=== PATIENT | male | born 1950 | race Caucasian/White ===

== ENCOUNTER → 2019-07-23 | Outpatient (CLI) | payer MEDICARE, OTHER ==
[~2019-07-23] MED LIST: COSAMIN ASU CA1 EACH PO; FINASTERIDE PO; Lortab PO; MULTI-VITAMIN1 EACH PO; NAPROXEN; TAMSULOSIN HCL0.4 MG PO; VITAMIN D
--- NOTE | 2019-07-23 09:12 | Diagnostic Imaging Report ---
EXAMINATION: KNEE LEFT THREE VIEWS INDICATION: Left knee pain COMPARISON: None FINDINGS: No acute fracture or dislocation. Alignment is anatomic. Moderate patellofemoral compartment predominant IMPRESSION: No acute osseous injury. Moderate patellofemoral compartment predominant tricompartmental degenerative changes. Moderate suprapatellar joint effusion. Signed by: Jay Tao MD on 07/23/2019 9:08 AM
== END ==
LOC: RAD 07:18
PROVIDERS: ATTEND Internal Medicine
DX: M25.562 Pain in left knee (principal)

== ENCOUNTER → 2020-01-12 | Outpatient (CLI) | payer MEDICARE, OTHER ==
--- NOTE | 2020-01-12 14:57 | Diagnostic Imaging Report ---
TECHNIQUE: Magnetic resonance imaging of the right hindfoot was performed WITHOUT injected contrast. COMPARISON: None available. HISTORY: Posterior tibial tendon pain FINDINGS: LIGAMENTS: Medial Complex: Deltoid is intact. Lateral Complex: Tibiofibular, talofibular, and calcaneofibular ligaments intact TENDONS: Medial: Insertional tendinopathy of the posterior tibial tendon with mild peritendinitis edema. Lateral: Peroneal tendons intact. Anterior: Anterior tibial and extensor tendons intact. Achilles: Achilles tendon intact BONES: Mild reactive edema in the medial talar head. No acute fracture or osteonecrosis. JOINTS: Cartilage: Scattered degenerative arthrosis involving the subtalar and talonavicular joint. Other: Fluid within the joints is within physiologic limits. SOFT TISSUES: Otherwise, unremarkable. IMPRESSION: Insertional tendinopathy of the posterior tibial tendon with mild peritendinitis edema. 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 Reactive edema in the medial talar head. Signed by: Dr. Omar Sim M.D. on 01/12/2020 2:53 PM
== END ==
LOC: MRI 12:58
PROVIDERS: ATTEND Podiatrist Foot & Ankle Surgery
DX: M76.821 Posterior tibial tendinitis, right leg (principal)

== ENCOUNTER → 2020-01-28 | Day surgery (SDC) | payer MEDICARE, OTHER ==
[2020-01-23 15:30] LABS: BASOPHILS # (AUTO) 0.1 (0.0-0.1); BASOPHILS % 0.7 % (0.0-1.0); EOSINOPHILS # (AUTO) 0.3 (0.0-0.4); EOSINOPHILS % 3.2 % (0.0-6.0); HEMATOCRIT 43.3 % (38.2-49.6); HEMOGLOBIN 14.1 g/dL (14.0-18.0); LYMPHOCYTES # (AUTO) 2.3 (1.0-3.2); MEAN CORPUSCULAR HEMOGLOBIN 29.4 pg (28-32); MEAN CORPUSCULAR HGB CONC 32.6 g/dL (31-35); MEAN CORPUSCULAR VOLUME 90.2 fL (81-99); MONOCYTES # (AUTO) 0.9 (0.2-0.8); MONOCYTES % 9.9 % (4.4-11.3); NEUTROPHILS # (AUTO) 5.9 (2.1-6.9); NEUTROPHILS % 61.8 % (38.7-80.0); PLATELET COUNT 246 x10e3/uL (140-360); RED CELL DISTRIBUTION WIDTH 13.6 % (11.7-14.4)
--- NOTE | 2020-01-23 15:47 | Diagnostic Imaging Report ---
Exam: Chest radiograph Clinical History: Preoperative clearance Findings: The cardiomediastinal silhouette and lungs are normal. The regional skeleton and soft tissue are unremarkable. There is no evidence of pleural effusion or pneumothorax. Impression: No radiographic evidence of acute cardiopulmonary disease. Signed by: Dr. Celio Mendez MD on 01/23/2020 3:44 PM
[~2020-01-28] MED LIST changes: +BP MED PO; +BUPIVACAINE HCL 0.5% INJ 30 ML VIAL INJ ONE; +CEFAZOLIN SOD 1 GM/NS 50ML 50 ML IV ONE; +DEXAMETHASONE SOD PHOS INJ 4 MG/ML VIAL ONE; +EPHEDRINE SULFATE INJ 50 MG/ML VIAL ONE; +LIDOCAINE HCL 2% LOCAL INJ 5 ML SDV VIAL INJ ONE; +LOTREL 5-10 MG1 EACH PO; +PROPOFOL IV EMULSION 10 MG/ML 20 ML VIAL ONE; +SEVOFLURANE INHAL SOLN 250 ML PEN BTL ONE
[2020-01-28 08:15] VITALS: BP 140/83
--- NOTE | 2020-01-28 13:09 | Operative Report ---
DATE OF PROCEDURE: 01/28/2020 SURGEON: Jc Sadler DPM PREOPERATIVE DIAGNOSIS: Right foot posterior tibial tendon rupture. POSTOPERATIVE DIAGNOSIS: Right foot posterior tibial tendon rupture. PLANNED PROCEDURE: Right posterior tibial tendon repair. SURGEON: Dennys Prakash DPM ([place]) MIX CHEMIST: Jc Sadler DPM ANESTHESIA: General with a postoperative block consisting of 20 mL of 0.5% Marcaine plain mixed with 1 mL of dexamethasone phosphate. HEMOSTASIS: Pneumatic thigh tourniquet set at 350 mmHg for a total time of approximately 30 minutes. MATERIALS: 4-0 Prolene, 3-0 Vicryl. ESTIMATED BLOOD LOSS: Less than 10 mL. PATHOLOGY: None. PROCEDURE NOTE: The patient was seen in the preoperative waiting room, where the correct procedure and site were identified. The patient was brought into the operating room and placed on the operating table in the supine position. General anesthesia was initiated. At this time, a well-padded pneumatic tourniquet was placed about the patient's right thigh. The right foot, ankle, and leg were then scrubbed, prepped, and draped in the usual aseptic manner. The right foot, ankle, and leg were then exsanguinated with an Esmarch bandage and a pneumatic thigh tourniquet was inflated to 350 mmHg for a total time of approximately 30 minutes. Attention was directed to the medial aspect of the patient's right foot. The navicular tuberosity was identified and a 6 cm curvilinear incision was made directly over the navicular tuberosity extending proximally toward the posterior aspect of the medial malleolus along the course of the posterior tibial tendon. The incision was carried through subcutaneous tissue with them from deep or underling structures. All vital and neurovascular structures were identified, retracted medially and laterally, and all bleeders were cauterized or ligated as deemed necessary. The incision was carried down through the paratenon posterior tibial tendon and dissected proximally to allow for good visualization of posterior tibial tendon. As the posterior tibial tendon was coursing along the medial malleolus appeared to be intact with no evidence of any tearing. There was evidence of attenuation with hematoma formation toward the distal aspect of the tendon approximately 2 cm proximal to the insertion. Next, the degenerated tendon was debrided with a #15 blade and reapproximated utilizing a 3-0 Prolene in a tubularizing simple fashion. The tendon was noted to be intact and in anatomic alignment. Next, the peritoneum was reapproximated as well as the retinaculum with 3-0 Vicryl, subcutaneous tissue with 3-0 Vicryl, and the skin was closed using a running interlocking stitch of 4-0 Prolene. The incision site was dressed with Adaptic, 4x4s, Kerlix, 4 x 30 posterior splint, 4-inch Jose wrap, and a 6-inch Jose wrap. The patient tolerated the procedure and anesthesia well. The patient was transferred to the postop recovery with vital signs stable and vascular status intact. The patient was monitored for short period time before being sent home with the following oral instructions: 1. Keep the dressing clean, dry, intact. 2. The patient is to remain nonweightbearing in a posterior splint to avoid any ambulation until being seen in the office. 3. The patient is given the office number and instructed to contact if any problems arise. Dictated by Jc Sadler DPM S MEET Arana ([place])/MODL /[id number]
== END | disposition home or self-care (01) ==
LOC: OR 05:26
PROVIDERS: ATTEND Podiatrist Foot & Ankle Surgery
DX: S96.811A Strain of other specified muscles and tendons at ankle and foot level, right foot, initial encounter (principal); I10 Essential (primary) hypertension; X58.XXXA Exposure to other specified factors, initial encounter; Z01.810 Encounter for preprocedural cardiovascular examination; Z01.812 Encounter for preprocedural laboratory examination; Z01.818 Encounter for other preprocedural examination; Z11.59 Encounter for screening for other viral diseases
CPT/HCPCS: 28200; 36415; 71046; 85025; 87635; 93005; J0690; J1100; J2001; J2704